=== PATIENT | female | born 1950 | race Caucasian/White ===

== ENCOUNTER → 2016-09-05 | Outpatient (CLI) | payer MEDICARE, OTHER ==
[~2016-09-05] MED LIST: BENTYL20 MG PO; CLONAZEPAM0.5 MG PO; CONSTULOSE10 GM/15 M PO; DEXAMETHASONE 44 MG PO; KLONOPIN TAB 00.5 MG PO; LOTENSIN20 MG PO; MAGIC MOUTH WASH PO; MEGACE SUSP40 MG/M1 PO; NEURONTIN800 MG PO; NORCO 10-325 T1 EACH PO; REQUIP2 MG PO; SENNA8.6 MG PO; SENOKOT-S TABL1 EACH PO; SINGULAIR10 MG PO; TARCEVA150 MG PO; ZOFRAN8 MG PO
== END ==
LOC: OPSV 09:00 → CT 11:30
DX: C34.31 Malignant neoplasm of lower lobe, right bronchus or lung (principal); K76.89 Other specified diseases of liver; C77.1 Secondary and unspecified malignant neoplasm of intrathoracic lymph nodes; R42 Dizziness and giddiness; Z90.2 Acquired absence of lung [part of]; R59.0 Localized enlarged lymph nodes
CPT/HCPCS: 71260; 96360; 96361; J1642; J7030; J7050; Q9962